=== PATIENT | female | born 1960 | race Caucasian/White ===

== ENCOUNTER → 2018-08-11 | Outpatient (CLI) | payer OTHER ==
[~2018-08-11] MED LIST: ASPIRIN325 PO; IBUPROFEN 200200 M1 PO; IBUPROFEN 800800 M1 PO; OXYCONTIN10 M1 PO; PERCOCET 7.5-31 EACH PO
== END ==
LOC: CAT 14:57
DX: Z13.6 Encounter for screening for cardiovascular disorders (principal); E78.00 Pure hypercholesterolemia, unspecified; I25.10 Atherosclerotic heart disease of native coronary artery without angina pectoris